=== PATIENT | female | born 1965 | race American Indian/Alaskan Native ===

== ENCOUNTER 2018-12-08 21:47 | Emergency (ER) | payer OTHER ==
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
[2018-12-09] MEDS ORDERED: APRESOLINE IM ONE (03:06)
[2018-12-09] MEDS ORDERED: APRESOLINE ONE (03:07)
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
[2018-12-09] MEDS ORDERED: IBUPROFEN PO ONE (04:20)
[2018-12-09] MEDS ORDERED: FLEXERIL PO ONE (04:20)
[2018-12-09] MEDS ORDERED: TYLENOL PO ONE (04:21)
[2018-12-09 04:36] VITALS: BP 168/53
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
== END 2018-12-09 05:19 | disposition home or self-care (01) ==
LOC: ED 21:47
DX: M62.838 Other muscle spasm (principal); M62.830 Muscle spasm of back; I10 Essential (primary) hypertension; R51 Headache; I25.2 Old myocardial infarction; E11.9 Type 2 diabetes mellitus without complications; Z95.5 Presence of coronary angioplasty implant and graft; Z86.73 Personal history of transient ischemic attack (TIA), and cerebral infarction without residual deficits; Z90.710 Acquired absence of both cervix and uterus; Z87.891 Personal history of nicotine dependence; Z98.890 Other specified postprocedural states; V49.49XA Driver injured in collision with other motor vehicles in traffic accident, initial encounter; Y93.89 Activity, other specified; Y92.410 Unspecified street and highway as the place of occurrence of the external cause; Y99.8 Other external cause status
CPT/HCPCS: 70450; 72040; 72100; 73502; 96372; 99284; J0360